=== PATIENT | male | born 1950 | race Caucasian/White ===

== ENCOUNTER → 2017-05-10 | Outpatient (CLI) | payer MEDICARE ==
[~2017-05-10] MED LIST: AMBIEN 10 MG TA10 MG PO; AMBIEN 5 MG TABL5 M1 PO; AMITRIPTYLINE H25 M2 PO; ANDROGEL1.25 GM TD; ASPIR 8181 MG PO; BACLOFEN20 MG PO; CELEXA 20 MG TA20 M1 PO; CELEXA10 MG PO; CREAM TOP; CRESTOR10 MG PO; CYMBALTA60 MG PO; DURAGESIC25 MCG/HR TRANSDERM; Duragesic 25 mcg Pat TRANSDERM; EFFEXOR XR37.5 MG PO; FENTANYL PA25 MCG/HR TRANSDERM; FENTANYL PATCH75 MCG TRANSDERM; FISHOIL; FLEXERIL PO; FLOMAX0.4 MG PO; HYDROCODON-ACE1 EAC8 PO; IBUPROFEN 800800 M1 PO; LYRICA300 MG PO; MEDROLDOSEPACK PO; METHADONE HCL 110 M1 PO; MULTIVITAMINS; NABUMETONE 500500 M1 PO; NEURONTIN 300300 M1 PO; OMEPRAZOLE 20 M20 MG PO; OXYCODON-ACETA1 EAC1 PO; OXYCONTIN20 M1 PO; PERCOCET 10-321 EAC1 PO; PERCOCET 10-321 EACH PO; PERCOCET 7.5-31 EACH PO; PROBIOTIC1 EAC1 PO; RED YEAST RICE600 MG PO; RELAFEN500 MG PO; RESTORIL15 MG PO; TENORMIN25 MG PO; TRAMADOL 50 MG50 MG PO; VENLAFAXINE HCL50 MG PO; WELLBUTRIN SR150 M1 PO; ZETIA10 MG PO; [UNRECOGNIZED DRUG - REMARK]; flomax PO
--- NOTE | 2017-06-01 08:30 | PAINCON ---
[address] [address] PAIN MANAGEMENT CONSULTATION Name: TEJINDER KENNEY Room: [facility] DarionRimaMarbella#: [id number] Admission: 05/10/17 Attend Phys: Simran Montanez MD Discharge: Date of : 54 Report #: [id number] THIS REPORT FOR: //name// CC: Romina Grant DATE OF SERVICE: 05/10/2017 FOLLOWUP COMPLAINT: Pain in the low back. HISTORY OF PRESENT ILLNESS: The patient is a 66-year-old gentleman who has been seen in the pain clinic in the past because of pain and discomfort and his shoulders, low back and left hip. He returns to the pain clinic and would like to have his medications renewed. He is experiencing pain and discomfort in the right shoulder, knee as well as in the left rib cage area. Had an injection in January that was very helpful with the pain. At this juncture, he is having pain in the lower portion of his back, in the left side, and in the upper area is most problematic. He finds that his fentanyl medication and Percocet continued to be helpful. Baclofen is beneficial. He also continues to use ibuprofen. He rates his pain as 4/10 at this juncture. He feels that the pain is quite problematic and since he had noted improvement from a trigger point in January, he would like to proceed with an injection. ALLERGIES: No known drug allergies. MEDICATIONS: His current medications include aspirin 81 mg daily, atenolol 25 mg daily, baclofen 20 mg daily, Wellbutrin-SR 150 mg, fish oil, fentanyl patch 25 mcg transdermal, ibuprofen 800 mg q. 8 hours p.r.n., lactobacillus probiotic daily, multivitamin 1 tablet, omeprazole 20 mg daily, oxycodone/acetaminophen 10/325. SOCIAL HISTORY: The patient denies use of tobacco, does not use illicit drugs or alcohol. No imaging is available. PAIN CLINIC ASSESSMENT HISTORY: 1. History of osteoarthritis. The patient has had some surgery on his right knee as well as right shoulder pain, and also, some left shoulder pain. 2. Pain intensity 07/05. 3. Fall risk. The patient has not fallen in the last 3 months. 4. The patient is not on a blood thinner. 5. The patient is not being treated for hypertension. 6. Opioid therapy greater than 6 weeks. The patient is on fentanyl patch and has a contract signed with pain clinic that he will get his medications from one physician. 7. [place] [address] PAIN MANAGEMENT CONSULTATION Name: TEJINDER KENNEY Room: [facility]#: [id number] Admission: 05/10/17 Attend Phys: Simran Montanez MD Discharge: Date of : 54 Report #: [id number] 8. Functional assessment tool, regarding general activity, mood, walking ability, work, relationships with others, sleep, and enjoyment in life. 9. The patient denies use of recreational drugs. 10. The patient does not use tobacco. Denies use of alcoholic beverages. 11. Orientation: The patient is alert and oriented x3. 9. Affect: The patient's affect appears appropriate. PHYSICAL EXAMINATION: VITAL SIGNS: Blood pressure 124/74, heart rate 84, respiratory rate 16, room air saturation 92%, temperature 99.7, height 5 feet 8 inches, weight 186 pounds, BMI is 28. GENERAL: The patient is a well-developed male. Appearance: The patient appears the stated age. HEENT: Normocephalic, atraumatic. Normal hearing. Denies nasal congestion moist buccal membranes. NECK: Without masses or adenopathy. He has pain and discomfort with some limitations of motion in the upper shoulder area with pain secondary to osteoarthritis, bilaterally. ABDOMEN: Nontender. MUSCULOSKELETAL: Appears to have normal alignment without significant kyphosis, scoliosis or lump or lordosis. Gait appears appropriate. Lumbar flexion and extension caused some increased discomfort in the left low back area. Palpation in this area indicates a trigger point in the area of the gluteus nadia who left posterior superior iliac spine/latissimus dorsi area. Left lateral bending increases some discomfort. Left lateral rotation increases some discomfort. Major muscle groups in the lower extremity is judged to be 5/5. IMPRESSION: 1. Myofascial trigger point in the left posterior superior iliac spine area. 2. History of bilateral shoulder pain secondary to osteoarthritis. 3. Bilateral chronic knee pain. He is considering surgery in the future. 4. Right torn meniscus. 5. Opioid use for chronic pain. RECOMMENDATIONS: We discussed treatment options with the patient. He is having pain and discomfort in the left posterior superior iliac spine area. Palpation to this area, bending and movements cause increased pain and discomfort. Palpation reduces his pain and the patient feels that this is somewhat problematic and he would like to undergo an injection. He did clean improvement after the left greater trochanteric bursa injection in January. We have discussed the possible complications with the patient. Risks and benefits were reviewed. They could include but are not limited to infection, worsening of pain, and no improvement in pain. PROCEDURE NOTE: The patient was taken to the procedure area. He was helped on [address] [place] [address] PAIN MANAGEMENT CONSULTATION Name: TEJINDER KENNEY Room: [facility]#: [id number] Admission: 05/10/17 Attend Phys: Simran Montanez MD Discharge: Date of : 54 Report #: [id number] to the examination table. He was placed in the sitting position. His back was sterilely prepped with a chlorhexidine solution, which was allowed to dry. Palpation in the area of the gluteus nadia posterior superior iliac spine and latissimus dorsi area was palpated. A trigger point was noted. A 25-gauge needle was then advanced to the area of discomfort. The patient states that this did reproduce his pain and discomfort. Total of 10 mL of 0.5% bupivacaine and 80 mg triamcinolone was injected. The patient tolerated the procedure well. There were no complications. He remained in the pain clinic for an appropriate amount of time. Pain decreased to 2 at the time of departure. He will call us if he has any concerns or complaints. We would like to thank you for letting us participate in his care. We hope he continues to improve. <ELECTRONICALLY SIGNED> By: Simran Montanez MD 06/01/17 0830 0814 [id number]. Yandel Montanez MD /PMT
== END | disposition home or self-care (01) ==
LOC: M.PC 05-09 09:30
DX: M79.1 Myalgia (principal); G89.29 Other chronic pain; M25.561 Pain in right knee; M25.562 Pain in left knee; Z79.891 Long term (current) use of opiate analgesic; Z79.899 Other long term (current) drug therapy; Z79.82 Long term (current) use of aspirin; Z87.39 Personal history of other diseases of the musculoskeletal system and connective tissue

== ENCOUNTER → 2017-08-02 | Outpatient (CLI) | payer MEDICARE ==
--- NOTE | 2017-08-09 10:23 | PAINCON ---
[address] [address] PAIN MANAGEMENT CONSULTATION Name: TEJINDER KENNEY Room: [facility] LETY DarionMarbellaRimaMarbella#: [id number] Admission: 08/02/17 Attend Phys: Simran Montanez MD Discharge: Date of : 54 Report #: [id number] THIS REPORT FOR: //name// CC: Romina Grant DATE OF SERVICE: 08/02/2017 FOLLOWUP COMPLAINT: Here for medication renewal. FOLLOWUP HISTORY: The patient is a 66-year-old gentleman who has been followed in the pain clinic because of chronic pain involving a number of items. As you recall, he is a gentleman states he has worked pretty hard most of his life. He has worked in construction. He has fallen from a roof when he was younger. Since that history of hard work he has had problems with his shoulders, left and right. He has had 2 failed shoulder repairs on the right and 1 failed shoulder repair on the left. Continues to have pain and discomfort and notes that as the weather pattern continued to change his pain mirrors that. When the weather is worse his pain is worse. Also, has some pain in his right knee. Has had a torn meniscus in the past. He feels that his current medicine regimen of baclofen, ibuprofen and oxycodone continue to be helpful. He also finds fentanyl remains beneficial. He does not have any problems with his mentation. He is able to stay clear headed. He has returned today with a desire to have his medications renewed. We would also like to return and undergo shoulder injections. He has gleaned significant benefits from these. ALLERGIES: No known drug allergies. MEDICATIONS: Aspirin 81 mg, atenolol 25 mg daily, baclofen 20 mg b.i.d., Wellbutrin SR 150 mg, fish oil, fentanyl patch 25 mcg transdermal, ibuprofen 800 mg q.8 hours, Lactobacillus probiotic daily, multivitamin tablet, omeprazole 20 mg daily, oxycodone/acetaminophen 10/325 mg. SOCIAL HISTORY: The patient denies use of tobacco. LABORATORY DATA: No new images are available. PAIN CLINIC ASSESSMENT: 1. History of osteoarthritis involving both shoulders, left and right as well as the left knee. 2. Height is 5 feet 8 inches, weight 182 pounds, BMI is 28. 3. Vital Signs: Blood pressure 110/64, heart rate 93, respiratory rate 16, room air saturation 95%, temperature 98.4. Pain intensity 6/10. 4. Fall risk. The patient has not fallen in the last 3 months. 5. Blood thinner. The patient [place] [address] PAIN MANAGEMENT CONSULTATION Name: TEJINDER KENNEY Room: [facility]#: [id number] Admission: 08/02/17 Attend Phys: Simran Montanez MD Discharge: Date of : 54 Report #: [id number] 6. History of hypertension. The patient is not being treated for hypertension. 7. Opioid therapy greater than 6 weeks. The patient is receiving opioid therapy through the pain clinic. 8. Functional assessment tool regarding activities, mood, walking, ability to conduct relationships with others, sleep and enjoyment of life. 9. Recreational drug use. The patient denies use of recreational drugs. 10. Orientation: The patient is alert and oriented x3. 11. Tobacco: The patient denies use of tobacco. 12. Alcohol. The patient denies use of chronic alcohol. PHYSICAL EXAMINATION: GENERAL: The patient is a well-developed, well-nourished white male. He appears his stated age. ORIENTATION: He is alert and oriented x 3. Affect is appropriate. Speech is fluent. HEENT: Normocephalic, atraumatic. Extraocular eye muscles intact. Sclerae nonicteric. Mucous membranes are moist. NECK: Without adenopathy or bruits. Does note some pain and discomfort in his upper shoulder area and pain secondary to osteoarthritis in his left arm as well as in his right arm. CHEST: Clear to auscultation without rhonchi or crackles. ABDOMEN: Nontender. MUSCULOSKELETAL: Indicates generally normal alignment without significant kyphosis, scoliosis or lordosis. Gait appears appropriate. Lumbar flexion and extension caused some increased discomfort in the left low back area. Has some pain and discomfort in the left leg/right medial meniscus area. IMPRESSION: 1. Right and left shoulder pain, status post failed shoulder surgeries. 2. Right knee pain. 3. Opioid use for chronic pain. RECOMMENDATIONS: We discussed treatment options with the patient. Risks and benefits of an injection were discussed. The patient would like to have a shoulder injection performed at the next visit. He has undergone injection and found him quite beneficial. Risks and benefits of the procedure were discussed and the patient states that he would like to proceed. The patient will return to the pain clinic after which we will discuss an epidural an injection into his shoulder to help with chronic pain secondary to failed shoulder surgeries on left and right side. We would like to thank you for letting us participate in his care. When he returns, we will then proceed with a shoulder injection. A script for his medications has been written. Baclofen 20 mg, ibuprofen 800 mg, oxycodone 10/325 mg and fentanyl patches 25 mcg q. 72 hours have been written. <ELECTRONICALLY SIGNED> By: Simran Montanez MD 08/09/17 1023 1400 1907N. Yandel Montanez MD /[facility]
== END ==
LOC: M.PC 03:54
DX: M25.511 Pain in right shoulder (principal); M25.512 Pain in left shoulder; M25.561 Pain in right knee; F11.90 Opioid use, unspecified, uncomplicated

== ENCOUNTER → 2017-10-25 | Outpatient (CLI) | payer MEDICARE ==
--- NOTE | 2017-10-26 14:16 | PAINCON ---
[address] [address] PAIN MANAGEMENT CONSULTATION Name: TEJINDER KENNEY Room: [facility] LETY DarionOllie#: [id number] Admission: 10/25/17 Attend Phys: Simran Montanez MD Discharge: Date of : 54 Report #: [id number] THIS REPORT FOR: //name// CC: Romina Montanez DATE OF SERVICE: 10/25/2017 FOLLOWUP COMPLAINT: Here for medication renewal. I am also having some ringing in my ears and the left low back area improved after injection. I have got some pain another spot. FOLLOWUP HISTORY: The patient is a 66-year-old gentleman who has been followed in the pain clinic because of chronic pain. He has chronic pain involving a number of areas. As you recall, he has had three surgeries in the shoulders. At this juncture, the tissue has deteriorated to the point that he would not hold sutures. He is considering whether or not an additional surgery in the future would be beneficial. Continues to have pain and discomfort in his knees. As you recall, he has had two surgeries involving his knees. Still has a torn meniscus involving the right knee area. Has some pain and discomfort in the left hip area. It was injected at the last visit. He has noted an improvement. Does have some pain in the midline portion of his low back and spine area. He continues to note some pain and discomfort when he is walking around. Notes that sleep is somewhat problematic at night. He is unable to sleep on the affected side. He feels that he is suffering some repercussions from the vertebral fractures he has experienced in the past. He did fall off from a roof in the past. He is experiencing some tenderness. Finds that this is quite problematic. 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 ALLERGIES: No known drug allergies. CURRENT MEDICATIONS: 81 mg of aspirin, atenolol 25 mg daily, baclofen 20 mg b.i.d., Wellbutrin-SR 150 mg, fish oil, fentanyl patch 25 mcg transdermal, ibuprofen 800 mg every 8 hours, lactobacillus, probiotics daily, multivitamins, omeprazole 20 mg daily, oxycodone 10/325. PAIN CLINIC ASSESSMENT: 1. History of osteoarthritis involving both shoulders, left and right as well as his left knee. 2. Right knee torn meniscus. 3. Height 5 feet 8 inches, weight 182 pounds, BMI is 27. 4. Vital signs: Blood pressure 116/75, heart rate 80, respiratory rate 16, room air saturation 96%, temperature 97.8. 5. Pain intensity 07/05. 6. Fall risk. The patient has not fallen in the last 3 months. 7. Blood thinner. The patient is not on [place] [address] PAIN MANAGEMENT CONSULTATION Name: TEJINDER KENNEY Room: [facility]#: [id number] Admission: 10/25/17 Attend Phys: Simran Montanez MD Discharge: Date of : 54 Report #: [id number] 8. History of hypertension. The patient is not being treated for hypertension. 9. Opioid therapy greater than 6 weeks. The patient is receiving his medications through the pain clinic. 10. Functional assessment tool regarding activities. 11. Recreational drug use. The patient denies use of recreational drugs. 12. Tobacco use. The patient denies use of tobacco. 13. Alcohol: The patient denies use of chronic alcohol use. PHYSICAL EXAMINATION: GENERAL: The patient is a well-developed, well-nourished white male. Appears stated age. He is alert and oriented x3. His affect is appropriate. Speech is fluent. HEAD, EYES, EARS, NOSE, AND THROAT: Normocephalic, atraumatic. Extraocular eye muscles intact. The patient is wearing glasses. Sclerae nonicteric. Mucous membranes are moist. NECK: Without adenopathy or bruits. The patient does have some discomfort in his upper shoulder areas and some limitation in movement secondary to a history of left as well as right arm osteoarthritis and pathology. CHEST: Clear to auscultation without rhonchi or rales. ABDOMEN: Nontender. MUSCULOSKELETAL: Generally within good alignment without significant kyphosis or scoliosis or lordosis. The patient has pain and discomfort in the left posterior superior iliac spine near the gluteus nadia and latissimus dorsi. Palpation in this area does reproduce pain and discomfort. The patient would like to undergo treatment for this. IMPRESSION: 1. Right and left shoulder pain status post failed shoulder surgeries. 2. Right knee torn meniscus. 3. Opioid use for chronic pain management. 4. Ringing in the ears. RECOMMENDATIONS: We discussed treatment options with the patient. At this point, we will proceed with a trigger point injection to the affected area. Risks and benefits of the procedure were discussed. Possible complications which could include infection, worsening of pain, no improvement in pain were discussed and the patient elects to proceed. The patient also has problems with ringing in his ears. He has worked around loud noises. He also is on nonsteroidal anti-inflammatory medication, sometimes aspirin type medications can precipitate tinnitus. He may decrease the amount of aspirin medications that he is taking to see whether or not he notices improvement in that. He would like to proceed with a trigger point injection. PROCEDURE NOTE: The patient was taken to the examination room. He was placed on the bed. He was perpendicular to the bed. A chair was placed under his feet. His back was sterilely prepped with a chlorhexidine solution. [place] [address] PAIN MANAGEMENT CONSULTATION Name: TEJINDER KENNEY Room: [facility]#: [id number] Admission: 10/25/17 Attend Phys: Simran Montanez MD Discharge: Date of : 54 Report #: [id number] needle was then advanced to the area of discomfort. A total of 80 mg Depo-Medrol, 5 and 10 mL of 0.5% bupivacaine was injected. The patient tolerated the procedure well. There were no complications. He remained in the pain clinic for an appropriate amount of time. He will follow up in the future as needed. We would like to thank you for letting us to participate in his care. We hope he continues to improve. <ELECTRONICALLY SIGNED> By: Simran Montanez MD 10/26/17 1416 0934 [id number]. Yandel Montanez MD /CANDICE
== END | disposition home or self-care (01) ==
LOC: M.PC 05:14
DX: M79.1 Myalgia (principal); M25.552 Pain in left hip; G89.29 Other chronic pain; M25.512 Pain in left shoulder; M25.511 Pain in right shoulder; S83.206D Unspecified tear of unspecified meniscus, current injury, right knee, subsequent encounter; H93.13 Tinnitus, bilateral; Z79.82 Long term (current) use of aspirin; Z79.899 Other long term (current) drug therapy; Z79.891 Long term (current) use of opiate analgesic; Z98.890 Other specified postprocedural states; X58.XXXD Exposure to other specified factors, subsequent encounter

== ENCOUNTER → 2018-01-24 | Outpatient (CLI) | payer MEDICARE ==
--- NOTE | 2018-02-08 16:28 | PAINCON ---
[address] [address] PAIN MANAGEMENT CONSULTATION Name: TEJINDER KENNEY Room: [facility]#: [id number] Admission: 01/24/18 Attend Phys: Simran Montanez MD Discharge: Date of : 54 Report #: [id number] THIS REPORT FOR: //name// CC: Romina Grant DATE OF SERVICE: 01/24/2018 PRIMARY CARE PHYSICIAN: Romina Moss D.O. CHIEF COMPLAINT: Right shoulder and right knee pain. HISTORY OF PRESENT ILLNESS: The patient is a 67-year-old gentleman who has been followed and seen in the pain clinic because of chronic pain involving his shoulders and knees. States that he has had shoulder surgery on both sides. Pain continues to be problematic. States that he has torn some of the areas again. He has had 3 surgeries on his shoulders. They have continued to deteriorate. States they would not hold sutures. He is considering whether any additional surgery might be helpful. Also, he has some pain and discomfort involving his knees. He has been wearing a right knee brace. Continues to have some pain in the middle and lower portion of his spine. Has some difficulty sleeping secondary to the pain. Has had some vertebral fractures. These continue to be problematic. As you recall, he fell off a roof in the past. ALLERGIES: No known drug allergies. CURRENT MEDICATIONS: 81 mg aspirin, atenolol 25 mg daily, baclofen 20 mg b.i.d., Wellbutrin-SR 150 mg, fish oil, fentanyl patches 25 mcg transdermal q.72 hours, ibuprofen 800 mg q.8 hours, lactobacillus, probiotic use daily, multivitamins, omeprazole 20 mg, and oxycodone 10/325. PAIN CLINIC ASSESSMENT AND PQRS: 1. History of osteoarthritis involving both shoulders, left knee and right knee as well. Right knee has a torn meniscus. 2. Height 5 feet 8 inches, weight 180 pounds, BMI is 27. 3. Vital Signs: Blood pressure 124/75, heart rate 89, respiratory rate 16, room air saturation 96%, temperature 98.5. 4. Pain intensity 06/04. 5. Fall history: The patient has not fallen in the last 3 months. 6. Blood thinner. The patient is not on a blood thinning medication. 7. History of hypertension. The patient has not been treated for hypertension. 8. Opiates greater than 6 weeks. The patient has received medications through the pain clinic. 9. Functional assessment tool . 10. Recreational drug use. The patient denies [place] [address] PAIN MANAGEMENT CONSULTATION Name: TEJINDER KENNEY Room: [facility]#: [id number] Admission: 01/24/18 Attend Phys: Simran Montanez MD Discharge: Date of : 54 Report #: [id number] 11. Tobacco: The patient denies use of tobacco. 12. Alcohol: The patient denies use of alcohol. PHYSICAL EXAMINATION: GENERAL: The patient is a well-developed, well-nourished, white male. Appears his stated age. He is alert and oriented x 3. His affect is appropriate. Speech is fluent. HEENT: Normocephalic, atraumatic. Extraocular eye muscles intact. Sclerae nonicteric. Mucous membranes are moist. The patient is wearing glasses. NECK: Without adenopathy or bruits. The patient does have some discomfort in his upper shoulders. Has some limited movement in the upper areas secondary to decreased range of motion secondary to osteoarthritis and pathology of the shoulders. CHEST: Clear to auscultation without rhonchi or rales. ABDOMEN: Nontender. Bowel sounds present. MUSCULOSKELETAL: Without significant scoliosis, kyphosis or lordosis. The patient has pain in his left as well as the right knee. Notes, some instability in the right knee and has been wearing a brace. Has some pain in the posterior superior iliac spine areas. IMPRESSION: 1. Right and left shoulder pain, status post failed back surgeries. 2. Right knee torn meniscus. 3. Use of chronic pain medications. 4. Ringing in the ears. RECOMMENDATIONS: We discussed treatment options with the patient. At this juncture, he feels his medications are working reasonably well. He would like to continue their use. He is having no problems with them. He has noticed that the L5 to sacral injections in the past were beneficial. Overall, he is still trying to figure out whether or not additional surgery might be helpful in his shoulders. He would like to continue with his medications. He is aware that opioid medications can be helpful. Opioid medications can become less effective over a period of time secondary to tolerance. We also discussed that 72,000 people have as a result of use of opioid medications. The patient keeps his medication in a guarded area. Feels that they are helpful and enable him to engage in activities of daily living and would not be able to without their use, would like to continue. We would like to thank you for letting us participate in his care. We hope he continues to improve. <ELECTRONICALLY SIGNED> By: Simran Montanez MD 02/08/18 1628 1417 [id number]. MD JARET Andrews
== END ==
LOC: M.PC 01-17 09:20
DX: S83.206A Unspecified tear of unspecified meniscus, current injury, right knee, initial encounter (principal); M25.511 Pain in right shoulder; M25.561 Pain in right knee; X58.XXXA Exposure to other specified factors, initial encounter; Y93.89 Activity, other specified; Y92.89 Other specified places as the place of occurrence of the external cause; Y99.8 Other external cause status; G89.29 Other chronic pain

== ENCOUNTER → 2018-04-18 | Outpatient (CLI) | payer MEDICARE ==
--- NOTE | ~2018-04-18 | PAINCON ---
[address] [address] PAIN MANAGEMENT CONSULTATION Name: TEJINDER KENNEY Room: [facility] DarionMarbellaRimaMarbella#: [id number] Admission: 04/18/18 Attend Phys: Simran Montanez MD Discharge: Date of : 54 Report #: [id number] THIS REPORT FOR: //name// CC: Romina Montanez DATE OF SERVICE: 04/18/2018 CHIEF COMPLAINT: "Here for medication renewal and I have got some pain in my left back down in the hip." FOLLOWUP HISTORY: The patient is a 67-year-old gentleman who has been followed in the pain clinic because of chronic pain involving a number of areas. They involving shoulders, knees and he is having pain in his low back area. As you may recall may recall, he has had surgery on his both shoulders. He has had 3 surgeries on his shoulders. They continued to deteriorate. He is not sure that an additional surgeries in the shoulder will be beneficial. He has returned today for renewal of his medications. He also has right knee brace in place. Has some pain and discomfort in the middle portion of his spine. He has pain that is radiating down the left low back area. He underwent a trigger point in that area in the past and noted benefit. He would like to undergo another injection today. He has had vertebral fractures in the past. As you recall, he fell off a roof in the distant past. ALLERGIES: No known drug allergies. CURRENT MEDICATIONS: Aspirin 81 mg, atenolol 25 mg daily, baclofen 20 mg b.i.d., Wellbutrin-SR 150 mg, fish oil, fentanyl patches 25 mcg q. 72 hours, ibuprofen 800 mg q. 8 hours, Lactobacillus probiotic daily, multivitamin, omeprazole 20 mg, oxycodone 10 mg t.i.d. PAIN CLINIC ASSESSMENT AND PQRS: 1. The patient has osteoarthritic changes involving the shoulders, left knee and right knee. Has had some torn meniscus in his right knee. The patient is not being treated for rheumatoid arthritis. 2. Height 5 feet 8 inches, weight 186 pounds, BMI is 28. 3. Vital signs: Blood pressure 134/89, heart rate 108, respiratory rate 16, room air saturation 94%. Temperature 100. 4. Pain score 10. 5. Fall history: The patient has not fallen in the last 3 months. 6. Blood thinner. The patient is not on a blood thinning medication. 7. Hypertension. The patient is not being treated for hypertension. 8. Opioids greater than 6 weeks. The patient [facility]. 9. Functional assessment tool . 10. Recreational drug use. The patient [place] [id number] PAIN MANAGEMENT CONSULTATION Name: TEJINDER KENNEY Room: [facility]#: [id number] Admission: 04/18/18 Attend Phys: Simran Montanez MD Discharge: Date of : 54 Report #: [id number] 11. Alcohol: The patient denies use of alcoholic beverages. PHYSICAL EXAMINATION: GENERAL: The patient is a well-developed, well-nourished white male. Appears his stated age. He is alert and oriented x 3. His affect is appropriate. Speech is fluent. HEENT: Normocephalic, atraumatic. Extraocular eye muscles intact. The patient is wearing glasses. Mucous membranes are moist. NECK: Without adenopathy or JVD. The patient has some discomfort in his upper shoulders, left and right. Has some limitation at movement and moves his shoulders in a somewhat guarded fashion secondary to the pain and arthritic changes. CHEST: Clear to auscultation without rhonchi or rales. ABDOMEN: Nontender. Bowel sounds present. MUSCULOSKELETAL: Without significant scoliosis, kyphosis or lordosis. The patient has some pain and discomfort in the lower portion of his left back. In the area of the left posterior superior iliac spine near the gluteus nadia the patient has pain. Palpation in this area makes note of a trigger point. This reproduces pain he has been experiencing. Has been wearing a right knee brace. IMPRESSION: 1. Right and left shoulder pain status post failed back surgeries and shoulder surgeries. 2. Right knee torn meniscus. 3. Chronic pain medication. 4. Chronic ringing in the ears. RECOMMENDATIONS: We discussed treatment options with the patient. At this juncture, he feels that a trigger point would be beneficial. He underwent trigger point injection with a similar pain in the past and gleaned benefit from that. The patient was taken to the procedure area. We discussed the possible complication of the procedure, which could include but are not limited to infection, worsening of pain, no improvement in pain, bleeding, nerve damage. The patient elects to proceed. PROCEDURE NOTE: The patient was placed on the examination table. He sat perpendicular to the table. A chair was placed under his feet for support. The patient leaned forward as though he was going to tie his shoes. Palpation of the left posterior superior iliac spine area reproduces pain and discomfort. His back was sterilely prepped with a chlorhexidine solution and allowed to dry. A 25-gauge needle was then advanced into the area of the trigger point. The patient states this did reproduce a trigger point. Aspiration was negative. A total of 8 mL of 0.5 mg of bupivacaine and 80 mg of Depo-Medrol was injected. This was near the gluteus nadia/latissimus dorsi and posterior superior iliac spine area. The patient tolerated the procedure well. There were no complications. Pain decreased to 2 at the time of discharge. [place] [id number] PAIN MANAGEMENT CONSULTATION Name: TEJINDER KENNEY Room: [facility]#: [id number] Admission: 04/18/18 Attend Phys: Simran Montanez MD Discharge: Date of : 54 Report #: [id number] in the future as needed. We would like to thank you for letting us participate in his care. We hope he continues to improve. By: [id number]. Yandel Montanez MD /CANDICE
== END | disposition home or self-care (01) ==
LOC: M.PC 08:30
DX: M79.18 Myalgia, other site (principal); G89.29 Other chronic pain; M25.511 Pain in right shoulder; M25.512 Pain in left shoulder; H93.19 Tinnitus, unspecified ear; Z98.890 Other specified postprocedural states; Z79.899 Other long term (current) drug therapy; Z79.82 Long term (current) use of aspirin; Z79.891 Long term (current) use of opiate analgesic

== ENCOUNTER → 2018-07-04 | Outpatient (CLI) | payer OTHER | LOC: M.CT 10:55 | DX: Z13.6 Encounter for screening for cardiovascular disorders (principal) ==

== ENCOUNTER → 2018-07-11 | Outpatient (CLI) | payer MEDICARE ==
--- NOTE | 2018-07-14 13:10 | PAINCON ---
[address] [address] PAIN MANAGEMENT CONSULTATION Name: TEJINDER KENNEY Room: [facility] DarionRimaMarbella#: [id number] Admission: 07/11/18 Attend Phys: Simran Montanez MD Discharge: Date of : 54 Report #: [id number] THIS REPORT FOR: //name// CC: Romina Montanez DATE OF SERVICE: 07/11/2018 CHIEF COMPLAINT: The trigger point injection was very helpful. HISTORY: The patient is a 67-year-old gentleman who has been followed in the pain clinic because of chronic pain. He has had some pain and discomfort in his back as well as in his hip. He was seen at the last visit and was complaining of pain and discomfort in the low back area. A trigger point was performed. He has noticed an improvement in his pain. Notes that movement, stretching, sitting and certain activities can improve his pain. He did not have any complication from the trigger point injection. Ensign that the results were excellent. He is about 70% improved as a result of the injection. He feels that his medications continue to be helpful. He has taken the medication as prescribed. Does have some pain and discomfort in his shoulders as well as in both his knees. He would like to consider shoulder injection. He has had 3 shoulder surgeries and complains of pain and discomfort in his knees bilaterally. He has had vertebral fractures. As you may recall, he fell off a roof in the distant past. ALLERGIES: No known drug allergies. CURRENT MEDICATIONS: Aspirin 81 mg, atenolol 25 mg, baclofen 20 mg b.i.d., Wellbutrin SR 150 mg, fish oil, fentanyl patches 25 mcg q. 72 hours, ibuprofen 800 mg q. 8 hours, lactobacillus prophylactic, multivitamins, omeprazole 20 mg, and oxycodone 10/10 mg 1 p.o. t.i.d. PAIN CLINIC ASSESSMENT AND PQRS: 1. Osteoarthritic changes in his shoulders, left and right knee. He has had torn meniscus in his right knee. The patient is not being treated for rheumatoid arthritis. 2. Height 5 feet 8 inches. Weight is 177 pounds, BMI is 27.0. 3. Vital signs: Blood pressure 136/88, heart rate 96, respiratory rate 16, room air saturation 96%, temperature 98.6. 4. Pain intensity 5/10. 5. Fall history: The patient has not fallen in the last 3 months. 6. Blood thinner. The patient is not on a blood thinning medication. 7. Hypertension. The patient is not being treated for hypertension. 8. Opiates greater than 6 weeks. The [facility]. 9. Functional [place] [address] PAIN MANAGEMENT CONSULTATION Name: TEJINDER KENNEY Room: [facility]#: [id number] Admission: 07/11/18 Attend Phys: Simran Montanez MD Discharge: Date of : 54 Report #: [id number] 10. Recreational drug use. The patient denies use of recreational drugs. 11. Alcohol: The patient states that he drinks alcoholic beverage daily. PHYSICAL EXAMINATION: GENERAL: The patient is a well-developed, well-nourished white male. Appears his stated age. He is alert, oriented x 3. His affect is appropriate. Speech is fluent. HEENT: Normocephalic, atraumatic. Extraocular eye muscles intact. The patient is wearing glasses. NECK: Without adenopathy or JVD. Has complaint of discomfort in the shoulders, upper left as well as right. Some limitation of motion is noted in the shoulders. Has some arthritic changes. CHEST: Clear to auscultation without rhonchi or rales. ABDOMEN: Nontender. Bowel sounds are present. MUSCULOSKELETAL: Without significant scoliosis, kyphosis or lordosis. The patient does have some pain in his knees, left and right. The patient does wear a right knee brace. IMPRESSION: 1. Right and left shoulder pain status post failed back surgeries and shoulder surgeries. 2. Right knee torn meniscus. 3. Chronic pain. 4. Chronic ringing in the ears. RECOMMENDATIONS: We discussed treatment options with the patient. We will continue with his current medications. A script for his medications has been rewritten. He will continue with hydrocodone 10/325 one p.o. q.i.d. He has also been given a script for baclofen 20 mg 1 p.o. q.i.d. or t.i.d. as well as Duragesic patch q. 72 hours to be applied. He will continue with ibuprofen. Of note the aspects of ibuprofen on his GI tract. Should it be problematic he will then stopped that medication at least for a period of time. We would like to thank you for letting us participate in his care. We hope he continues to improve. <ELECTRONICALLY SIGNED> By: Simran Montanez MD 07/14/18 1310 [id number] 185N. Yandel Motnanez MD /nt
== END ==
LOC: M.PC 05:17
DX: G89.29 Other chronic pain (principal); M19.011 Primary osteoarthritis, right shoulder; M19.012 Primary osteoarthritis, left shoulder; S83.206D Unspecified tear of unspecified meniscus, current injury, right knee, subsequent encounter; H93.13 Tinnitus, bilateral; M17.0 Bilateral primary osteoarthritis of knee; Z79.82 Long term (current) use of aspirin; Z79.899 Other long term (current) drug therapy; Z79.891 Long term (current) use of opiate analgesic; X58.XXXD Exposure to other specified factors, subsequent encounter

== ENCOUNTER → 2018-10-03 | Outpatient (CLI) | payer MEDICARE ==
--- NOTE | ~2018-10-03 | PAINCON ---
[address] [address] PAIN MANAGEMENT CONSULTATION Name: TEJINDER KENNEY [id number] Admission: 10/03/18 Attend Phys: Simran Montanez MD Discharge: Date of : 54 Report #: [id number] THIS REPORT FOR: //name// CC: Romina Montanez DATE OF SERVICE: 10/03/2018 FOLLOWUP COMPLAINT: Here for medication renewal, still having pain in my low back, knees and shoulders. FOLLOWUP HISTORY: The patient is a 67-year-old gentleman who has been followed in the pain clinic because of chronic pain. States that he has pain in his neck and in both shoulders. He has some mid back pain and discomfort as well. He has pain in both knees. He has had surgery x 2 on his knees. The patient states that he has had some old fractures in his back. He has a sensation of some pulling in the anterior chest area near the clavicular area. He notes that his pain improves with injections. He has had three shoulder surgeries. He states that the sutures do not hold. He is not anticipating and surgery in the near future. His [id number] . He states he has a son as well as a grandson, which he is busy socializing with. As you may recall, he has had vertebral fractures. He fell off a roof in the distant past. ALLERGIES: No known drug allergies. MEDICATIONS: Aspirin 81 mg, atenolol 25 mg, baclofen 20 mg b.i.d., Wellbutrin-SR 150 mg, fish oil, fentanyl patches 25 mcg q. 72 hours, ibuprofen 800 mg q.8 hours, lactobacillus prophylactic probiotic, multivitamins, omeprazole 20 mg, and oxycodone 10/325 one p.o. t.i.d. PAIN CLINIC ASSESSMENT/PQRS: 1. Osteoarthritis in both shoulders, left knee. The patient has a torn meniscus in his right knee. The patient is not being treated for rheumatoid arthritis. 2. Height 5 feet 8 inches, weight 181 pounds, BMI is 27.6. 3. Vital Signs: Blood pressure 137/78, heart rate 83, respiratory rate 16, room air saturation 95%. Temperature 99.0. 4. Pain score is 3/10 5. Fall history: The patient has not fallen in the last 3 months. 6. Blood thinner: The patient is not on a blood thinning medication. 7. Hypertension: The patient is not being treated for hypertension. 8. Opioid greater than 6 weeks. The patient [facility] the [facility]. 9. Risk assessment tool, low for opioid use. 10. Functional assessment tool. 11. [place] [address] PAIN MANAGEMENT CONSULTATION Name: TEJINDER KENNEY Room: [facility]#: [id number] Admission: 10/03/18 Attend Phys: Simran Montanez MD Discharge: Date of : 54 Report #: [id number] 12. Tobacco: The patient denies use of tobacco. 13. Alcohol. The patient drinks alcoholic beverage daily. PHYSICAL EXAMINATION: GENERAL: The patient is a well-developed, well-nourished white male. Appears his stated age. He is alert and oriented x 3. Affect is appropriate. Speech is fluent. HEENT: Normocephalic, atraumatic. Extraocular eye muscles intact. Sclerae nonicteric. Mucous membranes are moist. NECK: Without adenopathy or JVD. The patient has some stiffness in his neck and has some decreased range of motion. Complains of discomfort in his shoulders, left as well as right. He notes some limitation in movement of his shoulders secondary to arthritic changes and history of rotator cuff tears. CHEST: Clear to auscultation without rhonchi or rales. ABDOMEN: Nontender. Bowel sounds present. MUSCULOSKELETAL: Without significant scoliosis, kyphosis or lordosis. Lower extremity, the patient has pain in his knees. He has pain in the left as well as a right knee. Does wear a knee brace. Muscle strength to the lower extremity judged to be 5-/5 for the major muscle groups in the lower extremity. IMPRESSION: 1. Right and left shoulder pain status post failed surgeries. The patient states that the stitches continue to pulled loose. 2. History of vertebral fractures after a fall from a roof. 3. Right torn meniscus. 4. Chronic pain. 5. Chronic ringing in the ears. 6. Some depression secondary to loss of his cczqsg-kn-zzg. 7. ____ chronic pain with cervical radiculopathy. RECOMMENDATIONS: We discussed treatment options with the patient. At this juncture, he feels his medications are helpful. We explained to the patient the risks and benefits of opioid use. They can be helpful in certain situations, but could be less helpful as time goes on, secondary to development of tolerance. The patient is aware about 70,000 people last year as a result of opioid use. The patient states he keeps his medications in a guarded area. He uses medication as prescribed. He finds the medications of afford him the ability to maintain activity levels. He is able to do and stay much more active than he would without their use. Gleans greater than 50% improvement with use of his medications. Notes walking, sitting, standing, lifting and bending can be problematic. It improves with his use of medications. A script for his medications of oxycodone 10 mg 1 p.o. q.i.d., ibuprofen 800 mg 1 p.o. t.i.d., [facility] [address] [place] [address] PAIN MANAGEMENT CONSULTATION Name: TEJINDER KENNEY Room: [facility]#: [id number] Admission: 10/03/18 Attend Phys: Simran Montanez MD Discharge: Date of : 54 Report #: [id number] baclofen 20 mg t.i.d., Duragesic 25 mcg per q. 72-hour patch has been provided. The patient will continue with his current medical regimen. By: [id number]. Yandel Montanez MD /nt
== END ==
LOC: M.PC 05:16
DX: M54.12 Radiculopathy, cervical region (principal); G89.29 Other chronic pain; M25.512 Pain in left shoulder; F32.9 Major depressive disorder, single episode, unspecified; Z79.899 Other long term (current) drug therapy

== ENCOUNTER → 2018-11-28 | Outpatient (CLI) | payer MEDICARE ==
--- NOTE | ~2018-11-28 | PAINCON ---
[address] [address] PAIN MANAGEMENT CONSULTATION Name: TEJINDER KENNEY Room: [facility] DarionRimaMarbella#: [id number] Admission: 11/28/18 Attend Phys: Simran Montanez MD Discharge: Date of : 54 Report #: [id number] THIS REPORT FOR: //name// CC: Romina Montanez DATE OF SERVICE: 11/28/2018 CHIEF COMPLAINT: Here for medication renewal. HISTORY: The patient is a 68-year-old gentleman who has been seen in the pain clinic. He has chronic pain. Pain in his neck and shoulders is most problematic. Also, has some pain in the mid back area. He has pain in both knees. He has had surgery on both knees. The patient states that he has no new changes. His rqrmjs-vm-uja and he will be traveling in the car next week. It is a 10-[address] to [place]. Overall, things are going reasonably well. As you recall, part of his pain emanates from a fall from a roof in the distant past. ALLERGIES: No known drug allergies. CURRENT MEDICATIONS: Aspirin 81 mg, atenolol 25 mg, baclofen 20 mg b.i.d., Wellbutrin-SR 150 mg, fish oil, fentanyl patches 25 mcg q. 72 hours, ibuprofen 800 mg q. 8 hours, lactobacillus prophylactic probiotics, multivitamins, omeprazole 20 mg, and oxycodone 10/325 one p.o. tMarbellaialba PAIN CLINIC ASSESSMENT AND PQRS: 1. Osteoarthritis involving both shoulders, left knee and the patient has had a torn meniscus in his right knee. The patient is not being treated for rheumatoid arthritis. 2. Height 5 feet 8 inches, weight 180 pounds, BMI is 27.4. 3. Vital signs: Blood pressure 138/51, heart rate 101, respiratory rate 16, room air saturation 95, temperature 98.8. 4. Pain intensity is 5/10. 5. Fall history: The patient has not fallen in the last 3 months. 6. Blood thinner. The patient is not on a blood thinning medication. 7. Hypertension. The patient is not being treated for hypertension. 8. Opioids greater than 6 weeks. The patient [facility]. 9. Risk assessment tool, low for opioid use. 10. Functional assessment tool. 11. Recreational drug use. The patient denies. 12. Tobacco: The patient denies use of tobacco. 13. Alcohol: The patient occasionally drinks alcoholic beverages. PHYSICAL EXAMINATION: [place] [address] PAIN MANAGEMENT CONSULTATION Name: TEJINDER KENNEY Room: [facility]#: [id number] Admission: 11/28/18 Attend Phys: Simran Montanez MD Discharge: Date of : 54 Report #: [id number] GENERAL: The patient is a well-developed, well-nourished white male. Appears his stated age. He is alert and oriented x 3. His affect is appropriate. Speech is fluent. HEENT: Normocephalic, atraumatic. Extraocular eye muscles intact. Sclerae nonicteric. Mucous membranes moist. The patient is wearing glasses. NECK: Without adenopathy or JVD, has some pain and discomfort in his shoulders, left as well as the right. He has some limited movement in the upper shoulder area secondary to arthritic changes and history of rotator cuff tears. LUNGS: Clear to auscultation without rhonchi or rales. ABDOMEN: Nontender. Bowel sounds present. MUSCULOSKELETAL: Without significant scoliosis, kyphosis, or lordosis. Lower extremity, the patient has pain and discomfort involving his knees. He has pain in the left as well as right knee. Does wear a right knee brace. Muscle strength in the lower extremities judged to be 5-/5 for the major muscle groups in the lower extremity. IMPRESSION: 1. Right and left shoulder pain status post failed surgeries involving the shoulders. The patient states that the stitches continue to pull loose. 2. History of vertebral fractures after a fall from the roof. 3. Right torn meniscus. 4. Chronic pain. 5. Chronic ringing in the ears. 6. Depression secondary to loss of his sxxtzb-pz-rno. 7. Chronic cervical pain. RECOMMENDATIONS: We discussed treatment options with the patient. At this juncture, we will continue with his medications. He feels his medications are helpful. He still has pain, which he describes as uncomfortable involving his neck, knees, and back. He takes his medication as prescribed. He feels that he is able to engage in activities, would not be able to without their use. Keeps his medications in a guarded area. He is aware that opioid medications can be problematic in certain patients. He does not feel that the medications are causing him any problems. He is taking them as prescribed. He does not feel addicted. He would like to have his medications renewed. A script for his medications have been rewritten. He will continue using the opioid medications, using a complex medical management for his pain with 25 mcg of fentanyl q. 72 hours as well as oxycodone 10 mg 1 p.o. q.i.d., total of 120 tablets. The patient will also use ibuprofen and note its GI effects. He feels that baclofen is helpful and a script for the baclofen [place] [address] PAIN MANAGEMENT CONSULTATION Name: TEJINDER KENNEY Room: [facility]#: [id number] Admission: 11/28/18 Attend Phys: Simran Montanez MD Discharge: Date of : 54 Report #: [id number] We would like to thank you for letting us participate in his care. We hope he continues to improve. By: [id number]. Yandel Montanez MD /nt
== END ==
LOC: M.PC 04:49
DX: S83.206A Unspecified tear of unspecified meniscus, current injury, right knee, initial encounter (principal); M25.511 Pain in right shoulder; M25.512 Pain in left shoulder; G89.29 Other chronic pain; F32.9 Major depressive disorder, single episode, unspecified; M54.2 Cervicalgia; H93.13 Tinnitus, bilateral; Z87.81 Personal history of (healed) traumatic fracture; X58.XXXA Exposure to other specified factors, initial encounter; Y93.89 Activity, other specified; Y92.89 Other specified places as the place of occurrence of the external cause; Y99.8 Other external cause status

== ENCOUNTER → 2019-02-20 | Outpatient (CLI) | payer MEDICARE ==
[~2019-02-20] MED LIST changes: +NARCAN4 MG NARES
--- NOTE | ~2019-02-20 | PAINCON ---
[address] [address] PAIN MANAGEMENT CONSULTATION Name: TEJINDER KENNEY Room: [facility]#: [id number] Admission: 02/20/19 Attend Phys: Simran Montanez MD Discharge: Date of : 54 Report #: [id number] THIS REPORT FOR: //name// CC: SABIHA LUU DO Sabiha Montanez DATE OF SERVICE: 02/20/2019 CHIEF COMPLAINT: "Still having pain in my right shoulder, has had three rotator cuffs and a fractured vertebrae in my neck." HISTORY OF PRESENT ILLNESS: The patient is a 68-year-old gentleman who has been followed in the pain clinic. As you recall, he has a number of areas, which are problematic. He has pain involving his knees. He has had shoulder surgeries on 3 occasions. He has had torn rotator cuff surgery. States that he is now having more problems in his left rotator cuff. They were considering whether or not to do another repair or a replacement of his shoulder. He has had some fractures in the upper thoracic area. He has pain in his left as well as his right knee. Overall, his pain continues to be problematic. He notes that his pain continues to be quite problematic with prolonged sitting. He has continued to try to increase his level of fitness. Uses exercise bands. He is trying to decrease the atrophy in the upper shoulder area. Notes his pain is a 4 at its best and an 8 at times, particularly after prolonged sitting. ALLERGIES: No known drug allergies. CURRENT MEDICATIONS: Aspirin 81 mg, atenolol 25 mg, baclofen 20 mg b.i.d., Wellbutrin SR 150 mg, fish oil, fentanyl patches 25 mcg q.72 hours, ibuprofen 800 mg q.8 hours, lactobacillus probiotic, multivitamins, omeprazole 20 mg, oxycodone 10/325 one p.o. t.i.d. PAIN CLINIC ASSESSMENT/PQRS: 1. The patient has pain involving both shoulders. Has left knee pain. Has had a torn meniscus in the right knee. He is not being treated for rheumatoid arthritis. 2. Height 5 feet 8 inches, weight is 187 pounds, BMI is 28.5. 3. Vital signs: Blood pressure 139/60, heart rate 95, respiratory rate 16, room air saturation 95%. 4. Temperature 98.5. 5. Pain intensity 5/10. 6. Fall history: The patient has not fallen in the last 3 months. 7. Blood thinner. The patient is not on a blood thinning medication. 8. Hypertension. The patient is not being treated for hypertension. 9. Opioids greater than 6 weeks. The patient receives medication from one source, [place] [address] PAIN MANAGEMENT CONSULTATION Name: TEJINDER KENNEY Room: [facility]#: [id number] Admission: 02/20/19 Attend Phys: Simran Montanez MD Discharge: Date of : 54 Report #: [id number] 10. Risk assessment tool, low for opioid use. 11. Functional assessment tool reviewed. 12. Recreational drug use: The patient denies. 13. Tobacco: The patient denies use of tobacco. 14. Alcohol: The patient occasionally drinks alcoholic beverages. PHYSICAL EXAMINATION: GENERAL: The patient is a well-developed, well-nourished white male. Appears his stated age. He is alert and oriented x 3. His affect is appropriate. Speech is fluent. HEENT: Normocephalic, atraumatic. Extraocular eye muscles intact. Sclerae are nonicteric. The patient is wearing glasses. NECK: Without adenopathy or JVD. The patient has pain and discomfort in the left shoulder area as well as the right shoulder. There is limited motion in his upper shoulder areas bilaterally. Has history of rotator cuff tears. LUNGS: Clear to auscultation without rhonchi or rales. ABDOMEN: Nontender. MUSCULOSKELETAL: Without significant scoliosis, kyphosis, or lordosis. Lower extremity muscle strength judged to be 5-/5 for the major muscle groups. The patient does have pain in his right knee. Has worn a brace. IMPRESSION: 1. Right and left shoulder pain status post failed surgeries involving the shoulders. The patient may consider a left shoulder replacement. 2. History of vertebral fractures after fall from the roof. 3. Right torn meniscus. 4. History of chronic pain. 5. Chronic ringing in the ears. 6. Depression secondary to loss of family member's life/his [id number]. 7. Chronic cervical pain. RECOMMENDATIONS: We discussed treatment options with the patient. At this juncture, he will continue with his medications. He feels that the medications are working reasonably well. He does not have any problems with his GI tract. He is using Mobic. If he notes problem with his GI tract, he will stop with the Mobic medication. He will continue with Duragesic. He feels this medication is helpful. They are enabling him to engage in activities, he would not be able to without their use. He does not have any problems with thinking. There is no oversedation. He feels that the oxycodone medication is helpful as well. We have provided the patient with naloxone spray to use p.r.n. Should he or family member have problems with his opioids, he would have that as an option. He is not showing any signs of oversedation. He is not showing signs of problems with the medication. We will continue with his current medication regimen. A script for his medications has all been rewritten. He will follow up in about [place] [address] PAIN MANAGEMENT CONSULTATION Name: TEJINDER KENNEY Room: [facility]#: [id number] Admission: 02/20/19 Attend Phys: Simran Montanez MD Discharge: Date of : 54 Report #: [id number] We would like to thank you for letting us participate in his care. We hope he continues to improve. The patient is aware that medications can become less effective over time secondary to tolerance. By: [id number]. Yandel Montanez MD /mis
== END ==
LOC: M.PC 05:27
DX: M25.511 Pain in right shoulder (principal); M25.522 Pain in left elbow; G89.29 Other chronic pain; F32.9 Major depressive disorder, single episode, unspecified; M54.2 Cervicalgia

== ENCOUNTER → 2019-05-15 | Outpatient (CLI) | payer MEDICARE ==
--- NOTE | 2019-05-18 09:06 | PAINCON ---
[address] [address] PAIN MANAGEMENT CONSULTATION Name: TEJINDER KENNEY Room: [facility]#: [id number] Admission: 05/15/19 Attend Phys: Simran Montanez MD Discharge: Date of : 54 Report #: [id number] THIS REPORT FOR: //name// cc: Romina Moss Linda J. DO ~ THIS REPORT FOR: //name// CC: Romina Montanez DATE OF SERVICE: 05/15/2019 PRIMARY CARE PHYSICIAN: Romina Moss DO CHIEF COMPLAINT: Renewal of medications. HISTORY: The patient is a 68-year-old gentleman who has been followed in the pain clinic because of chronic pain. He has pain involving his right shoulder. Has had rotator cuff repairs, knee pain, low back pain. HISTORY OF PRESENT ILLNESS: The patient is a 68-year-old gentleman who has been followed in the pain clinic. He has found pain control with opioids efficacious. Continues to have a number of pain generators. Has pain in his right shoulder. Also, has pain in his knees. He has had pain in the back as well as pain in his neck. He is suffering from a sinus infection at this point. His physician has provided him with an antibiotic. He feels that there might be some improvement in the sinus infection. He is able to breathe a little easier. He notes that his pain is worse in the evenings. He feels that his pain is about 50-60% improved with his current medical regimen. Other activities of daily living such as sitting, standing, climbing stairs, walking, bending are still impacted. ALLERGIES: No known drug allergies. CURRENT MEDICATIONS: Aspirin 81 mg, atenolol 25 mg, baclofen 20 mg b.i.d., Wellbutrin-SR 150 mg, fish oil, fentanyl patches 25 mcg q. 72 hours, ibuprofen 800 mg q. 8 hours, lactobacillus, multivitamins, omeprazole 20 mg, oxycodone 10/325 one p.o. t.i.d. PAIN CLINIC ASSESSMENT AND PQRS: 1. The patient does have some pain and discomfort involving both shoulders. He has had 3 shoulder surgeries. Has pain in his left knee. Has had a torn meniscus in the right knee. He is not being treated for rheumatoid arthritis. 2. Height 5 feet 8 inches, weight 189 pounds, BMI is 28. 3. Vital signs: Blood pressure is 135/86, heart rate 87, respiratory rate 16, room air saturation 94%, temperature 98.6. [place] [address] PAIN MANAGEMENT CONSULTATION Name: TEJINDER KENNEY Room: [facility] [place]#: [id number] Admission: 05/15/19 Attend Phys: Simran Montanez MD Discharge: Date of : 54 Report #: [id number] 4. Pain intensity 06/04. 5. Fall history: The patient has not fallen in the last 3 months. 6. Blood thinner. The patient is not on a blood thinning medication. 7. Hypertension. The patient is not being treated for hypertension. 8. Opioids greater than 6 weeks. The patient receives medication from one source, the pain clinic. 9. Risk assessment tool, low for opioid use. 10. Functional assessment tool reviewed. 11. Recreational drug use: The patient denies. 12. Tobacco: The patient denies use of tobacco. 13. Alcohol: The patient occasionally drinks alcoholic beverages. PHYSICAL EXAMINATION: GENERAL: The patient is a well-developed, well-nourished white male. Appears his stated age. He is alert and oriented x 3. His affect is appropriate. Speech is fluent. HEENT: Normocephalic, atraumatic. Extraocular eye muscles intact. Sclerae nonicteric. Mucous membranes moist. The patient is wearing his glasses. NECK: Without adenopathy or JVD. The patient does complain of some pain in the right shoulder area. Has some pain and discomfort in his knees. He has complaint of some pain in the neck area. MUSCULOSKELETAL: Without significant scoliosis, kyphosis or lordosis. Upper extremity muscle strength judged to be 5-/5 for the major muscle groups in the upper extremity. Has worn a brace on his knees. IMPRESSION: 1. Right and left shoulder pain status post failed surgeries involving the shoulder. The patient is considering left shoulder replacement. 2. History of vertebral fractures after a fall from a roof. 3. Right torn meniscus. 4. History of chronic pain. 5. Chronic ringing in the ears. 6. Depression secondary to loss of family member. 7. Chronic cervical pain. RECOMMENDATIONS: We discussed treatment options with the patient. We will proceed with a renewal of his medications. He feels that the medications have been beneficial. He has taken the Duragesic medications and finds that that one is helpful in quelling the pain. He is taking the medications as prescribed. He feels that the ibuprofen is beneficial and continues to monitor his GI tract as a result of its use. He feels that the muscle relaxant properties of baclofen continue to be beneficial and takes 1 tablet t.i.d. Also, uses oxycodone 10 mg 1 p.o. q.i.d. The patient is considering lowering his opioid use. We will consider decreasing the oxycodone medication [place] [address] PAIN MANAGEMENT CONSULTATION Name: TEJINDER KENNEY Room: [facility]#: [id number] Admission: 05/15/19 Attend Phys: Simran Montanez MD Discharge: Date of : 54 Report #: [id number] We would like to thank you for letting us participate in his care. We hope he continues to improve. <ELECTRONICALLY SIGNED> By: Simran Montanez MD 05/18/19 0906 [id number]. Yandel Montanez MD /PMT
== END ==
LOC: M.PC 09:00
DX: M25.511 Pain in right shoulder (principal); M25.512 Pain in left shoulder; F32.9 Major depressive disorder, single episode, unspecified; M54.2 Cervicalgia

== ENCOUNTER → 2019-08-07 | Outpatient (CLI) | payer MEDICARE ==
[~2019-08-07] MED LIST changes: +DURAGESIC1 EAC4 TRANSDERM
--- NOTE | 2019-08-21 22:11 | PAINCON ---
[address] [address] PAIN MANAGEMENT CONSULTATION Name: TEJINDER KENNEY Room: [facility]#: [id number] Admission: 08/07/19 Attend Phys: Simran Montanez MD Discharge: Date of : 54 Report #: [id number] THIS REPORT FOR: //name// cc: Romina Moss Linda J. DO ~ THIS REPORT FOR: //name// CC: Romina Montanez DATE OF SERVICE: 08/07/2019 CHIEF COMPLAINT: Mid low back, knee, shoulder and left hip pain. HISTORY: The patient is a 68-year-old gentleman who has been followed in the pain clinic because of chronic pain. As you may recall, he has had chronic discomfort in a number of areas. He has pain involving his right shoulder. He has had rotator cuff repairs. He has knee pain. He has low back pain. He has found that pain medications have been helpful. He has returned today for renewal of his medications. He has noticed some increased depression associated with social isolation. The COVID-19 pandemic is causing some problems because he has to remain somewhat isolated. He notes that he continues to have pain and discomfort in his back with walking, sitting, standing, climbing stairs, bending, twisting, and lifting. He does use medications. He feels that heat and cold as well as rest are beneficial. He has returned today for renewal of his medications. ALLERGIES: No known drug allergies. CURRENT MEDICATIONS: Aspirin 81 mg, atenolol 25 mg, baclofen 20 mg b.i.d., Wellbutrin-SR 150 mg, fish oil, fentanyl patches 25 mcg hours every 72 hours, ibuprofen 800 mg every 8 hours, lactobacillus, multivitamins, omeprazole 20 mg, oxycodone 10 mg/325 one p.o. t.i.d. PAIN CLINIC ASSESSMENT/PQRS: 1. The patient does have some pain and discomfort involving both shoulders. He has had 3 shoulder surgeries. Has pain in his left knee. Has had a torn meniscus in the right knee. He is not being treated for rheumatoid arthritis. 2. Height 5 feet 8 inches, weight 188 pounds, BMI is 29.3. 3. Vital signs: Blood pressure 135/78, heart rate 92, respiratory rate 16, room air saturation 95%, temperature 96.4. 4. Pain intensity 5/10. 5. Fall history: The patient has not fallen in the last 3 months. 6. Blood thinner. The patient is not on a blood thinning medication. 7. Hypertension. The patient is not being treated for hypertension. 8. Opioids greater than 6 weeks. The patient [place] [address] PAIN MANAGEMENT CONSULTATION Name: TEJINDER KENNEY Room: [facility]#: [id number] Admission: 08/07/19 Attend Phys: Simran Montanez MD Discharge: Date of : 54 Report #: [id number] clinic. 9. Risk assessment tool, low for opioid use. 10. Functional assessment tool reviewed. 11. Recreational drug use. The patient denies. 12. Tobacco: The patient denies. 13. Alcohol: The patient occasionally drinks alcoholic beverages. PHYSICAL EXAMINATION: GENERAL: The patient is a well-developed, well-nourished white male. Appears his stated age. He is alert and oriented x 3. His affect is appropriate. Speech is fluent. HEENT: Normocephalic, atraumatic. Extraocular eye muscles intact. Sclerae nonicteric. Mucous membranes are moist. The patient is wearing glasses. Does have some decreased auditory acuity. NECK: Without adenopathy or JVD. The patient complains of some pain in his right shoulder. He has some complaints in his knee. Has complaints of pain in the neck area. MUSCULOSKELETAL: Without significant scoliosis, kyphosis or lordosis. Upper extremity muscle strength judged to be 5-/5 for the major muscle groups in the upper extremity. The patient has used a brace on his knee. IMPRESSION: 1. Left shoulder pain and right shoulder pain status post failed surgeries involving the shoulder. The patient is considering left shoulder replacement. 2. History of vertebral fractures after a fall from a roof. 3. Right torn meniscus. 4. History of chronic pain. 5. Chronic ringing in the ears. 6. Depression secondary to loss of family member. 7. Chronic cervical pain. RECOMMENDATIONS: We discussed treatment options with the patient. At this juncture, we will continue with his medications. He feels that the medications are helpful. He does not feel like he wants to hurt himself. He is somewhat noticed some increased depressed because of social isolation because of stay at home regulations. The patient feels that the Duragesic patch continues to be helpful. He feels that his muscle relaxants are helpful as well. He would like to continue with the medications. He keeps his medications in a guarded area. He is aware that opioid medications can become less effective over time because of development of tolerance. He has not shown any signs of addiction. Script for his medications of oxycodone have been rewritten. The patient will continue with oxycodone 10 mg 1 p.o. q.i.d. He will also continue with fentanyl patches 25 mcg 1 p.o. every 72 hours. A script for his medications has been provided. The patient will follow [place] [address] PAIN MANAGEMENT CONSULTATION Name: TEJINDER KENNEY Room: [facility]#: [id number] Admission: 08/07/19 Attend Phys: Simran Montanez MD Discharge: Date of : 54 Report #: [id number] We would like to thank you for letting us to participate in his care. We hope he continues to improve. <ELECTRONICALLY SIGNED> By: Simran Montanez MD 08/21/19 2211 [id number]. Yandel Montanez MD /CANDICE
== END ==
LOC: M.PC 05:15
DX: M54.5 Low back pain (principal); M25.511 Pain in right shoulder; M25.512 Pain in left shoulder; M25.569 Pain in unspecified knee; M25.552 Pain in left hip; G89.29 Other chronic pain; H93.19 Tinnitus, unspecified ear; F32.9 Major depressive disorder, single episode, unspecified; M54.2 Cervicalgia; F11.20 Opioid dependence, uncomplicated; I10 Essential (primary) hypertension; Z79.899 Other long term (current) drug therapy; Z98.890 Other specified postprocedural states; Z87.81 Personal history of (healed) traumatic fracture

== ENCOUNTER → 2019-10-30 | Outpatient (CLI) | payer MEDICARE ==
--- NOTE | 2019-11-13 08:25 | PAINCON ---
[address] [address] PAIN MANAGEMENT CONSULTATION Name: TEJINDER KENNEY Room: [facility].#: [id number] Admission: 10/30/19 Attend Phys: Simran Montanez MD Discharge: Date of : 54 Report #: [id number] THIS REPORT FOR: //name// cc: Romina Moss Linda J. DO ~ THIS REPORT FOR: //name// CC: Romina Montanez DATE OF SERVICE: 10/30/2019 CHIEF COMPLAINT: Chronic neck pain. HISTORY: The patient is a 68-year-old gentleman who has been followed in the pain clinic because of chronic pain involving his neck. He suffers from right shoulder pain. He has had rotator cuff repairs. Also, he has knee pain. He has chronic low back pain. He finds that his medications continue to be helpful. He is sheltering in because of COVID-19. This has caused some increased depression. He notes that his pain is worse with certain activities such as sitting. He does note some improvement with use of heat, activity and stretching. He has returned today with hopes of having his medications renewed. ALLERGIES: No known drug allergies. CURRENT MEDICATIONS: Aspirin 81 mg, atenolol 25 mg, baclofen 20 mg b.i.d., Wellbutrin-SR 150 mg, fish oil, fentanyl patches 25 mcg every 72 hours, ibuprofen 800 mg every 8 hours p.r.n., lactobacillus, multivitamins, omeprazole 20 mg, and oxycodone 10/325 one p.o. t.i.d. PAIN CLINIC ASSESSMENT AND PQRS: 1. The patient does have some pain and discomfort involving both shoulders. He has had 3 shoulder surgeries. He has had torn meniscus repair on his right knee. He has pain in his left knee. He is not being treated for rheumatoid arthritis. 2. Height 5 feet 8 inches, weight 185 pounds, BMI 29. 3. Vital Signs: Blood pressure 111/79, heart rate 74, respiratory rate 16, room air saturation 93%, temperature 98.1. 4. Pain intensity 07/05. 5. Fall history: The patient has not fallen in the last 3 months. 6. Blood thinner. The patient is not on a blood thinning medication. 7. Hypertension. The patient is not being treated for hypertension. 8. Opioids greater than 6 weeks. The patient receives medication from one source the pain clinic. 9. Functional assessment tool, reviewed. 10. Recreational drug use: [place] [address] PAIN MANAGEMENT CONSULTATION Name: TEJINDER KENNEY Room: [facility]#: [id number] Admission: 10/30/19 Attend Phys: Simran Montanez MD Discharge: Date of : 54 Report #: [id number] 11. Tobacco: The patient denies. 12. Alcohol: The patient occasionally drinks alcoholic beverages. PHYSICAL EXAMINATION: GENERAL: The patient is a well-developed, well-nourished white male. Appears his stated age. He is alert and oriented x 3. His affect is appropriate. Speech is fluent. HEENT: Normocephalic, atraumatic. Extraocular eye muscles intact. The patient is wearing glasses. He has decreased auditory acuity. He is wearing a mask. NECK: Without adenopathy or JVD. The patient complains of some pain in his right shoulder. He complains of pain in the neck area. MUSCULOSKELETAL: The patient without significant scoliosis, kyphosis or lordosis. Upper extremity muscle strength judged to be 5-/5 for the major muscle groups in the upper extremity. The patient also uses a brace on his knee. IMPRESSION: 1. Left shoulder and right shoulder pain, status post failed surgeries involving the shoulders. The patient is considering left shoulder replacement. 2. History of vertebral fracture after a fall from a roof a number of years ago. 3. Right torn meniscus. 4. History of chronic pain. 5. Chronic ringing in the ears. 6. Depression secondary to loss of family member. 7. Chronic cervical pain. RECOMMENDATIONS: We discussed treatment options with the patient. At this juncture, we will continue with his medications. He finds the medications are helpful. He continues to take the medication as prescribed. He is not having any problems with the medications. He is aware that they can become less effective as time goes on because of development of tolerance. The patient is using the Duragesic patches. He also finds that his muscle relaxants are helpful. We will continue his medications. A script for his medications of oxycodone have been rewritten. The patient will continue with oxycodone 10 mg 1 p.o. q.i.d. He will also continue with the fentanyl patches 25 mcg every 72 hours. A script for these medications are provided. He will call us if he has any concerns. We would like to thank you for letting us participate in his care. We hope he continues to improve. <ELECTRONICALLY SIGNED> By: Simran Montanez MD 11/13/19 0825 [id number]. Yandel Montanez MD /nt
== END ==
LOC: M.PC 02:21
PROVIDERS: ATTEND Anesthesiology Pain Medicine
DX: M54.2 Cervicalgia (principal); G89.29 Other chronic pain; S83.206D Unspecified tear of unspecified meniscus, current injury, right knee, subsequent encounter; M25.511 Pain in right shoulder; M25.512 Pain in left shoulder; H93.8X9 Other specified disorders of ear, unspecified ear; F11.20 Opioid dependence, uncomplicated; F32.9 Major depressive disorder, single episode, unspecified; Z79.899 Other long term (current) drug therapy; Z96.612 Presence of left artificial shoulder joint; Z87.81 Personal history of (healed) traumatic fracture; X58.XXXD Exposure to other specified factors, subsequent encounter

== ENCOUNTER → 2020-01-22 | Outpatient (CLI) | payer MEDICARE ==
--- NOTE | 2020-01-23 15:45 | PAINCON ---
[address] [address] PAIN MANAGEMENT CONSULTATION Name: TEJINDER KENNEY Room: [facility]#: [id number] Admission: 01/22/20 Attend Phys: Simran Montanez MD Discharge: Date of : 54 Report #: [id number] THIS REPORT FOR: //name// cc: Romina Moss Linda J. DO ~ CC: Romina Montanez DATE OF SERVICE: 01/22/2020 CHIEF COMPLAINT: Mid back, low back, knee, shoulder pain and neck pain. HISTORY: The patient is a 69-year-old gentleman who has been followed in the pain clinic because of chronic pain involving his neck. He suffers from pain involving his right shoulder. He has had a number of shoulder surgeries. He underwent 2 surgeries involving the left arm and one surgery involving the right arm. He describes them as failed surgeries. He has noticed a worsening of his pain and discomfort because of the change in the weather. It has gotten about 40 degrees cooler than it has been in the previous week. He feels that these cold changes are affecting his pain. He has been sheltering at home. He notes that the pain is helped with stretching and use of heat and activities. He developed a rash on his back last week. He has been placing steroid cream on it. He has returned today for renewal of his medications. ALLERGIES: No known drug allergies. CURRENT MEDICATIONS: Aspirin 81 mg, atenolol 25 mg, baclofen 20 mg b.i.d., Wellbutrin-SR 150 mg, fish oil, fentanyl patches 25 mcg q. 72 hours, ibuprofen 800 mg t.i.d., lactobacillus, multivitamins, omeprazole 20 mg, and oxycodone 10/325 one p.o. t.i.d. PAIN CLINIC ASSESSMENT/PQRS: 1. The patient has some pain and discomfort involving both shoulders, left and right. He has had 3 shoulder surgeries total, 2 surgeries on the left and one surgery on the right. He also complains of torn meniscus in his right knee and left knee. He is not being treated for rheumatoid arthritis. 2. Height 5 feet 8 inches, weight 180 pounds, BMI is 27.5. 3. Vital signs: Blood pressure 117/81, heart rate 101, respiratory rate 16, room air saturation 96%, temperature 96.4. 4. Pain intensity 4/10. 5. Fall history: The patient has not fallen in the last 3 months. 6. Blood thinner: The patient is not on a blood thinning medication. 7. Hypertension: The patient is not being treated for hypertension. 8. Opioids greater than 6 weeks: The patient receives medication from the pain clinic. 9. Functional assessment tool: james Dixon [place] [address] PAIN MANAGEMENT CONSULTATION Name: TEJINDER KENNEY Room: [facility]#: [id number] Admission: 01/22/20 Attend Phys: Simran Montanez MD Discharge: Date of : 54 Report #: [id number] 10. Recreational drug use: The patient denies. 11. Tobacco: The patient denies. 12. Alcohol: The patient occasionally drinks alcoholic beverages. PHYSICAL EXAMINATION: GENERAL: The patient is a well-developed, well-nourished white male. Appears his stated age. He is alert and oriented x 3. His affect is appropriate. Speech is fluent. HEENT: Normocephalic, atraumatic. Extraocular eye muscles intact. The patient is wearing glasses. Has a facial covering in place. NECK: Without adenopathy. HEART: Regular rate. LUNGS: Clear. EXTREMITIES: Upper extremity muscle strength judged to be 5-/5 for the major muscle groups in the upper extremity. Some decreased range of motion because of pain and discomfort in the left and right shoulder. MUSCULOSKELETAL: Without significant scoliosis, kyphosis or lordosis. Lower extremity muscle strength judged to be 5-/5 for the major muscle groups in the lower extremity. The patient sometimes uses a brace on his knee. IMPRESSION: 1. Left shoulder and right shoulder pain, status post failed surgeries involving the shoulders. The patient is considering left shoulder replacement. 2. History of vertebral fracture after a fall from a roof a number of years ago. 3. Right torn meniscus. 4. History of chronic pain. 5. Chronic ringing in the ears. 6. Depression secondary to loss of family member. 7. Chronic cervical pain. RECOMMENDATIONS: We discussed treatment options with the patient. At this juncture, we will have the patient continue with his current medication. We will give him paper scripts. He states that he is having some difficulty with his pharmacies in regards to them noting that he has refills of his medications with the digital outputs. At this point, we will continue with his medication. A script for oxycodone 10 mg 1 p.o. q.i.d. 120 tablets have been provided for the next 3 months. The patient will also continue with fentanyl patches 25 mcg one to his skin q. 72 hours for 3 months. He will also continue with baclofen and ibuprofen. He will note the effects of ibuprofen on his GI tract. Should he continue to have pain or discomfort in his GI tract, he will stop taking the ibuprofen medication. [address] [address] PAIN MANAGEMENT CONSULTATION Name: TEJINDER KENNEY [id number] Admission: 01/22/20 Attend Phys: Simran Montanez MD Discharge: Date of : 54 Report #: [id number] We would like to thank you for letting us participate in his care. We hope he continues to improve. <ELECTRONICALLY SIGNED> By: Simran Montanez MD 01/23/20 [id number] [id number]. Yandel Montanez MD /PMT
== END ==
LOC: M.PC 08:09
PROVIDERS: ATTEND Anesthesiology Pain Medicine
DX: S83.206D Unspecified tear of unspecified meniscus, current injury, right knee, subsequent encounter (principal); M54.5 Low back pain; M54.2 Cervicalgia; G89.29 Other chronic pain; M25.511 Pain in right shoulder; H93.13 Tinnitus, bilateral; F32.9 Major depressive disorder, single episode, unspecified; M25.512 Pain in left shoulder; F11.20 Opioid dependence, uncomplicated; Z96.612 Presence of left artificial shoulder joint; Z87.81 Personal history of (healed) traumatic fracture

== ENCOUNTER → 2020-04-15 | Outpatient (CLI) | payer OTHER | LOC: M.PC 07:56 | PROVIDERS: ATTEND Anesthesiology Pain Medicine | DX: S83.241D Other tear of medial meniscus, current injury, right knee, subsequent encounter (principal); F43.0 Acute stress reaction; M25.511 Pain in right shoulder; M25.512 Pain in left shoulder; G89.29 Other chronic pain; M54.2 Cervicalgia ==

== ENCOUNTER → 2020-07-08 | Outpatient (CLI) | payer OTHER | LOC: M.PC 07:48 | PROVIDERS: ATTEND Anesthesiology Pain Medicine | DX: G89.29 Other chronic pain (principal); M54.2 Cervicalgia; S83.206A Unspecified tear of unspecified meniscus, current injury, right knee, initial encounter; H93.13 Tinnitus, bilateral; Z98.890 Other specified postprocedural states; Z68.27 Body mass index [BMI] 27.0-27.9, adult; M25.512 Pain in left shoulder; M25.511 Pain in right shoulder; Z79.891 Long term (current) use of opiate analgesic; Z79.899 Other long term (current) drug therapy; X58.XXXA Exposure to other specified factors, initial encounter; Y93.89 Activity, other specified; Y92.89 Other specified places as the place of occurrence of the external cause; Y99.8 Other external cause status ==

== ENCOUNTER → 2020-11-25 | Outpatient (CLI) | payer OTHER | LOC: M.PC 09:24 | PROVIDERS: ATTEND Anesthesiology Pain Medicine | DX: S83.206A Unspecified tear of unspecified meniscus, current injury, right knee, initial encounter (principal); G89.29 Other chronic pain; M25.512 Pain in left shoulder; M25.511 Pain in right shoulder; H93.13 Tinnitus, bilateral; M54.2 Cervicalgia; Z79.899 Other long term (current) drug therapy; Z96.611 Presence of right artificial shoulder joint; X58.XXXA Exposure to other specified factors, initial encounter; Y93.89 Activity, other specified; Y92.89 Other specified places as the place of occurrence of the external cause; Y99.8 Other external cause status ==

== ENCOUNTER → 2020-12-23 | Outpatient (CLI) | payer OTHER ==
[~2020-12-23] MED LIST changes: +FENTANYL1 EACH TRANSDERM
== END ==
LOC: M.PC 09:26
PROVIDERS: ATTEND Anesthesiology Pain Medicine
DX: G89.29 Other chronic pain (principal); M25.511 Pain in right shoulder; M25.512 Pain in left shoulder; M54.2 Cervicalgia; Z96.612 Presence of left artificial shoulder joint; Z87.81 Personal history of (healed) traumatic fracture; Z79.82 Long term (current) use of aspirin; Z79.899 Other long term (current) drug therapy

== ENCOUNTER → 2021-01-20 | Outpatient (CLI) | payer OTHER | LOC: M.PC 08:41 | PROVIDERS: ATTEND Anesthesiology Pain Medicine | DX: M25.511 Pain in right shoulder (principal); M25.512 Pain in left shoulder; H93.19 Tinnitus, unspecified ear; M54.2 Cervicalgia; G89.29 Other chronic pain; Z79.899 Other long term (current) drug therapy ==

== ENCOUNTER → 2021-02-17 | Outpatient (CLI) | payer OTHER | END | disposition home or self-care (01) | LOC: M.PC 07:35 | PROVIDERS: ATTEND Anesthesiology Pain Medicine | DX: M54.12 Radiculopathy, cervical region (principal); G89.29 Other chronic pain; M25.511 Pain in right shoulder; M25.512 Pain in left shoulder; Z98.890 Other specified postprocedural states; Z79.899 Other long term (current) drug therapy; Z79.82 Long term (current) use of aspirin; Z85.820 Personal history of malignant melanoma of skin ==

== ENCOUNTER → 2021-03-17 | Outpatient (CLI) | payer OTHER | LOC: M.PC 08:30 | PROVIDERS: ATTEND Anesthesiology Pain Medicine | DX: S83.206A Unspecified tear of unspecified meniscus, current injury, right knee, initial encounter (principal); F43.21 Adjustment disorder with depressed mood; M25.511 Pain in right shoulder; M25.512 Pain in left shoulder; M54.2 Cervicalgia; H93.13 Tinnitus, bilateral; G89.29 Other chronic pain; Z79.899 Other long term (current) drug therapy; X58.XXXA Exposure to other specified factors, initial encounter; Y93.89 Activity, other specified; Y92.89 Other specified places as the place of occurrence of the external cause; Y99.8 Other external cause status ==

== ENCOUNTER → 2021-04-21 | Outpatient (CLI) | payer OTHER | LOC: M.PC 09:06 | PROVIDERS: ATTEND Anesthesiology Pain Medicine | DX: M25.511 Pain in right shoulder (principal); M25.512 Pain in left shoulder; M54.2 Cervicalgia; H93.13 Tinnitus, bilateral; Z79.82 Long term (current) use of aspirin; Z79.899 Other long term (current) drug therapy ==

== ENCOUNTER → 2021-05-19 | Outpatient (CLI) | payer OTHER | LOC: M.PC 09:20 | PROVIDERS: ATTEND Anesthesiology Pain Medicine | DX: M25.511 Pain in right shoulder (principal); M25.512 Pain in left shoulder; G89.29 Other chronic pain; H93.13 Tinnitus, bilateral; M54.2 Cervicalgia; Z79.82 Long term (current) use of aspirin; Z79.899 Other long term (current) drug therapy ==